=== PATIENT | female | born 1980 | race Caucasian/White ===

== ENCOUNTER → 2020-08-20 | Outpatient (CLI) | payer OTHER ==
--- NOTE | 2020-08-20 16:55 | RAD ---
Examination: Ultrasound pelvis HISTORY: History of IUD, left lower quadrant pain COMPARISON: None available FINDINGS: The uterus measures 10.5 x 4.7 x 3.4 cm. Linear echogenicity identified in the endometrium likely sec ondary to contraceptive device in place. The right ovary measures 13.6 x 12.8 x 1.9 cm likely a large cystic structure measuring 12.4 x 10.2 x 7.9 cm containing echogenicity with septations likely compl ex cyst or cystic lesion. The left ovary measures 4.6 x 3.5 x 3.9 cm. 2.8 cm cystic structure identified in the left ovary could be a follicle or cyst. Blood flow identifi ed in the right and left ovaries. IMPRESSION: 1. Large complex cystic structure identified in the right ovary measuring 12.4 cm could be a complex cyst or cystic lesion. Recommend MRI pelvis further evaluation. 2. 2.8 cm cyst or follicle left ovary. 3. IUD in place. Electronically signed by: Luis Manuel Flores MD (08/20/2020 4:53 PM) [id number]
== END ==
LOC: US 09:51
PROVIDERS: ATTEND Obstetrics & Gynecology
DX: N83.291 Other ovarian cyst, right side (principal); Z97.5 Presence of (intrauterine) contraceptive device
CPT/HCPCS: 76856

== ENCOUNTER → 2021-06-04 | Outpatient (CLI) | payer OTHER ==
--- NOTE | 2021-06-04 09:04 | RAD ---
US PELVIS W/TV History: Reason: LLQ PAIN / Spl. Instructions: / History: Comparison: Ultrasound August 20, 2020 Technique: Grayscale and color Doppler imaging of the pelvis was performed using transabdominal and t ransvaginal technique. Findings: The uterus measures 8.0 x 4.8 x 3.7 cm. Uterus has an unremarkable appearance. 80 within the endomet rial canal Reportedly prior right oophorectomy. Left ovary measures 6.4 x 5.1 x 4.2 cm. Left ovarian cyst measures 5.7 x 3.8 x 3.8 cm. Cumulus oophor us noted. Normal Doppler flow to the left ovary. IMPRESSION: 1. Left ovarian cyst. Recommend one-year ultrasound follow-up. 2. IUD within the upper endometrial canal. 3. Prior right oophorectomy. Electronically signed by: Adi Choi DO (06/04/2021 9:02 AM) [id number]
== END ==
LOC: US 07:51
PROVIDERS: ATTEND Obstetrics & Gynecology
DX: N83.202 Unspecified ovarian cyst, left side (principal); R10.2 Pelvic and perineal pain
CPT/HCPCS: 76830; 76856